=== PATIENT | female | born 1950 | race Caucasian/White ===

== ENCOUNTER → 2017-08-27 | Outpatient (CLI) | payer MEDICARE, OTHER ==
[2017-08-27 18:49] LABS: ANION GAP 10 MEQ/L (8-16); BLOOD UREA NITROGEN 16 MG/DL (7-18); CALCIUM LEVEL 8.8 MG/DL (8.8-10.2); CARBON DIOXIDE LEVEL 26 MEQ/L (21-32); CHLORIDE LEVEL 108 MEQ/L (98-107); GLOMERULAR FILTRATION RATE > 60.0 (>45); GLUCOSE, FASTING 112 MG/DL (70-100); POTASSIUM SERUM 4.9 MEQ/L (3.5-5.1); SODIUM LEVEL 144 MEQ/L (136-145)
== END ==
LOC: M SMT 11:05
DX: M81.0 Age-related osteoporosis without current pathological fracture (principal)
CPT/HCPCS: 80048

== ENCOUNTER → 2017-09-07 | Outpatient (CLI) | payer MEDICARE, OTHER ==
[2017-09-07 14:03] LABS: ANION GAP 8 MEQ/L (8-16); BLOOD UREA NITROGEN 14 MG/DL (7-18); CALCIUM LEVEL 9.3 MG/DL (8.8-10.2); CARBON DIOXIDE LEVEL 26 MEQ/L (21-32); CHLORIDE LEVEL 109 MEQ/L (98-107); CREATININE FOR GFR 0.85 MG/DL (0.55-1.30); GLOMERULAR FILTRATION RATE > 60.0 (>45); GLUCOSE, FASTING 87 MG/DL (70-100); POTASSIUM SERUM 4.9 MEQ/L (3.5-5.1); SODIUM LEVEL 143 MEQ/L (136-145)
== END ==
LOC: M SMT 10:00
DX: M81.0 Age-related osteoporosis without current pathological fracture (principal); E55.9 Vitamin D deficiency, unspecified
CPT/HCPCS: 80048

== ENCOUNTER 2017-09-08 08:46 | Outpatient (CLI) | payer MEDICARE, OTHER ==
[2017-09-08] MEDS: ZOLEDRONIC ACID 5 MG in APPROPRIATE DILUENT 1 EA IV (09:07)
== END 2017-09-08 10:00 | disposition home or self-care (01) ==
LOC: M INFU 08:46
DX: M81.0 Age-related osteoporosis without current pathological fracture (principal); Z88.0 Allergy status to penicillin; Z88.8 Allergy status to other drugs, medicaments and biological substances; Z79.899 Other long term (current) drug therapy
CPT/HCPCS: J3489

== ENCOUNTER → 2018-09-17 | Outpatient (CLI) | payer MEDICARE, OTHER ==
[~2018-09-17] MED LIST: ACET-683 PO; ALAVTAB PO; FISH7.5C PO; LORA0.5T11 PO; LUTECAP3 PO; RANI1TAB6 PO; TUMS750C5 PO; VITA-176 PO; VITA100T77 PO; VITA50005 PO; [UNRECOGNIZED DRUG - OTHER]; [UNRECOGNIZED DRUG - OTHER] PO
[2018-09-17 10:52] LABS: BLOOD UREA NITROGEN 17 MG/DL (7-18); CALCIUM LEVEL 9.6 MG/DL (8.8-10.2); CARBON DIOXIDE LEVEL 29 MEQ/L (21-32); CHLORIDE LEVEL 107 MEQ/L (98-107); CREATININE FOR GFR 0.86 MG/DL (0.55-1.30); GLOMERULAR FILTRATION RATE > 60.0 (>45); GLUCOSE, FASTING 95 MG/DL (70-100); POTASSIUM SERUM 4.6 MEQ/L (3.5-5.1); SODIUM LEVEL 144 MEQ/L (136-145)
== END ==
LOC: M LAB 09:49
PROVIDERS: ATTEND Internal Medicine Endocrinology, Diabetes & Metabolism
DX: M81.0 Age-related osteoporosis without current pathological fracture (principal)

== ENCOUNTER 2018-09-24 14:11 | Outpatient (CLI) | payer MEDICARE, OTHER ==
[~2018-09-24] VITALS: Ht 157.5 cm; Wt 68.2 kg
[2018-09-24 14:15] VITALS: BP 132/62
[2018-09-24] MEDS ORDERED: ZOLEDRONIC ACID 5 MG in APPROPRIATE DILUENT 1 EA IV ONE (15:00)
[2018-09-24 15:40] VITALS: BP 154/70
== END 2018-09-24 15:40 | disposition home or self-care (01) ==
LOC: M INFU 14:11
PROVIDERS: ATTEND Internal Medicine Endocrinology, Diabetes & Metabolism
DX: M85.89 Other specified disorders of bone density and structure, multiple sites (principal)
CPT/HCPCS: 96365; J3489

== ENCOUNTER 2018-11-09 10:19 | Day surgery (SDC) | payer MEDICARE, OTHER ==
[~2018-11-09] VITALS: Ht 157.5 cm; Wt 66.2 kg
[~2018-11-09 10:19] MED LIST changes: +NS 1,000 ML IV ONE; +OCUV1CAP4 PO; +OMEP-221 PO; +RANI-356 PO; -RANI1TAB6 PO; +RECL5INJ2 IV; +THERSOL3 OP
--- NOTE | 2018-11-09 12:42 | ROOR ---
Patient Name: Demond Nava Procedure Date: 11/09/2018 12:31 PM Date of : 1950 Age: 67 Room: [facility] Gender: Female Note Status: Finalized Procedure: Upper GI endoscopy Indications: Heartburn Providers: Raad NEVES MD Referring MD: Ivis DODSON MD Requesting Provider: Medicines: Monitored Anesthesia Care Complications: No immediate complications. Procedure: Pre-Anesthesia Assessment: - The heart rate, respiratory rate, oxygen saturations, blood pressure, adequacy of pulmonary ventilation, and response to care were monitored throughout the procedure. The Endoscope was introduced through the mouth, and advanced to the second part of duodenum. The upper GI endoscopy was accomplished without difficulty. The patient tolerated the procedure well. Findings: Small Hiatal Hernia. The esophagus was normal. The stomach was normal. The examined duodenum was normal. Impression: - Small Hiatal Hernia. - Normal esophagus. - Normal stomach. - Normal examined duodenum. - No specimens collected. Recommendation: - Follow an antireflux regimen. - Continue present medications. - (the script was sent to your pharmacy on file) Raad Neves MD Raad NEVES MD 11/09/2018 12:42:04 PM Electronically signed by Raad NEVES MD Number of Addenda: 0 Note Initiated On: 11/09/2018 12:31 PM Estimated Blood Loss: Estimated blood loss: none.
--- NOTE | 2018-11-09 13:04 | ROOR ---
Patient Name: Demond Nava Procedure Date: 11/09/2018 12:31 PM Date of : 1950 Age: 67 Room: [facility] Gender: Female Note Status: Finalized Procedure: Colonoscopy Indications: Screening for colorectal malignant neoplasm Providers: Raad NEVES MD Referring MD: Ivis DODSON MD Requesting Provider: Medicines: Monitored Anesthesia Care Complications: No immediate complications. Procedure: Pre-Anesthesia Assessment: - The heart rate, respiratory rate, oxygen saturations, blood pressure, adequacy of pulmonary ventilation, and response to care were monitored throughout the procedure. The Colonoscope was introduced through the anus and advanced to the terminal ileum, with identification of the appendiceal orifice and IC valve. The colonoscopy was performed without difficulty. The patient tolerated the procedure well. The quality of the bowel preparation was good. Findings: The perianal and digital rectal examinations were normal. Three sessile polyps were found in the ascending colon and cecum. The polyps were 4 to 6 mm in size. These polyps were removed with a cold snare. Resection and retrieval were complete. Small Internal Hemorrhoids. The exam was otherwise without abnormality on direct and retroflexion views. Impression: - Three 4 to 6 mm polyps in the ascending colon and in the cecum, removed with a cold snare. Resected and retrieved. - Small Internal Hemorrhoids. - The examination was otherwise normal on direct and retroflexion views. Recommendation: - Repeat colonoscopy in 3 years for surveillance. Raad Neves MD Raad NEVES MD 11/09/2018 1:04:07 PM Electronically signed by Raad NEVES MD Number of Addenda: 0 Note Initiated On: 11/09/2018 12:31 PM Estimated Blood Loss: Estimated blood loss: none.
[2018-11-09 13:35] VITALS: BP 148/77
== END 2018-11-09 13:38 | disposition home or self-care (01) ==
LOC: M OPP 10:19
PROVIDERS: ATTEND Internal Medicine Gastroenterology
DX: Z12.11 Encounter for screening for malignant neoplasm of colon (principal); D12.2 Benign neoplasm of ascending colon; D12.0 Benign neoplasm of cecum; R12 Heartburn; Z79.899 Other long term (current) drug therapy; Z88.8 Allergy status to other drugs, medicaments and biological substances; Z88.5 Allergy status to narcotic agent; Z88.2 Allergy status to sulfonamides; Z88.0 Allergy status to penicillin; Z87.891 Personal history of nicotine dependence

== ENCOUNTER → 2018-12-09 | Outpatient (CLI) | payer MEDICARE, OTHER ==
[~2018-12-09] MED LIST changes: -NS 1,000 ML IV ONE; +VITA100T14 PO; +VITA1CAP25 PO
[2018-12-09 12:15] LABS: BLOOD UREA NITROGEN 20 MG/DL (7-18); CALCIUM LEVEL 9.3 MG/DL (8.8-10.2); CARBON DIOXIDE LEVEL 30 MEQ/L (21-32); CHLORIDE LEVEL 107 MEQ/L (98-107); CREATININE FOR GFR 0.76 MG/DL (0.55-1.30); GLOMERULAR FILTRATION RATE > 60.0 (>45); GLUCOSE, FASTING 94 MG/DL (70-100); POTASSIUM SERUM 4.8 MEQ/L (3.5-5.1); SODIUM LEVEL 141 MEQ/L (136-145)
== END ==
LOC: M LAB 11:04
PROVIDERS: ATTEND Internal Medicine Endocrinology, Diabetes & Metabolism
DX: M81.0 Age-related osteoporosis without current pathological fracture (principal)

== ENCOUNTER → 2019-07-11 | Outpatient (REF) | payer MEDICARE, OTHER ==
[~2019-07-11] MED LIST changes: -LORA0.5T11 PO; +LORA0.5T5 PO; -RANI-356 PO; +RANI-397 PO
[2019-07-14 00:08] LABS: Lyme Disease IgG/IgM Antibodie <0.91 ISR (0.00-0.90); Lyme Disease IgM Ab Quantitati <0.80 index (0.00-0.79)
== END ==
LOC: M LAB REF 17:01
PROVIDERS: ATTEND Internal Medicine
DX: M25.50 Pain in unspecified joint (principal)

== ENCOUNTER → 2019-07-12 | Outpatient (CLI) | payer MEDICARE, OTHER ==
--- NOTE | 2019-07-12 11:26 | REPPI ---
BILATERAL HAND SERIES: Four views of each hand performed. No acute fracture or dislocation is seen. There is moderate narrowing with subchondral sclerosis between the scaphoid and trapezium on the right. There is mild narrowing at the joint between the trapezium and base of 1st metacarpal. There is mild narrowing of the 1st metacarpophalangeal joint. Mild diffuse narrowing of the 3rd through 5th proximal interphalangeal joints. There moderate narrowing of the 2nd through 5th distal interphalangeal joints with mild scattered spurring along these joints. On the left, there is moderate narrowing and mild subchondral sclerosis between the scaphoid and trapezium as well as between the trapezium and base of 1st metacarpal. There is mild narrowing and subchondral sclerosis at the 1st metacarpophalangeal and interphalangeal joints. There is mild diffuse narrowing of the 2nd through 5th proximal interphalangeal joints. There is moderate diffuse narrowing of the 2nd through 5th distal interphalangeal joints, with mild spurring at the base of the 2nd distal phalanx. IMPRESSION: Bilateral arthritic changes as above. Electronically Signed by Han Bach MD 07/12/2019 11:56 A
== END ==
LOC: M PLAIMG 10:33
PROVIDERS: ATTEND Internal Medicine
DX: M19.041 Primary osteoarthritis, right hand (principal); M19.042 Primary osteoarthritis, left hand; M79.641 Pain in right hand; M79.642 Pain in left hand

== ENCOUNTER 2019-08-08 17:53 | Emergency (ER) | payer MEDICARE, OTHER ==
[~2019-08-08] VITALS: Ht 160 cm; Wt 70.1 kg
[2019-08-08 17:54] VITALS: BP 143/99
[2019-08-08] MEDS ORDERED: MELO7.5T35 (18:00)
[2019-08-08] MEDS ORDERED: FLUORESCEIN OPHTH 1 MG STRIP OS ONE (18:30)
[2019-08-08] MEDS ORDERED: POLYSOL OP (18:44)
== END 2019-08-08 19:05 | disposition home or self-care (01) ==
LOC: M ED 17:53
DX: H11.32 Conjunctival hemorrhage, left eye (principal); S05.02XA Injury of conjunctiva and corneal abrasion without foreign body, left eye, initial encounter; X58.XXXA Exposure to other specified factors, initial encounter; Y92.099 Unspecified place in other non-institutional residence as the place of occurrence of the external cause; Y93.89 Activity, other specified; Y99.9 Unspecified external cause status; Z79.899 Other long term (current) drug therapy; Z88.0 Allergy status to penicillin; Z88.2 Allergy status to sulfonamides; Z88.5 Allergy status to narcotic agent

== ENCOUNTER → 2019-08-16 | Outpatient (CLI) | payer MEDICARE, OTHER ==
[~2019-08-16] MED LIST changes: +MELO7.5T35; +POLYSOL OP
--- NOTE | 2019-08-16 14:25 | REPVR ---
PROCEDURE INFORMATION: Exam: MR Lumbar Spine Without Contrast. Exam date and time: 08/16/2019 1:49 PM Age: 68 years old Clinical indication: Low back pain; Patient HX: Lbp; Additional info: Disc degeneration, R/O hnp/stenosis TECHNIQUE: Imaging protocol: Multiplanar magnetic resonance images of the lumbar spine without intravenous contrast. COMPARISON: CR SPINE LS COMPLETE 07/19/2019 10:55 AM FINDINGS: Vertebrae: 2 mm of degenerative retrolisthesis of L2 on L3 and L3 on L4. 2 mm of grade 1 degenerative anterolisthesis of L4 on L5. No acute fracture seen. Spinal cord: The conus medullaris ends normally. There is disc desiccation throughout. Disc height loss and spondylosis is mild at L2-L3, in particular there is prevertebral spondylosis. Slight posterior disc height loss with endplate osteophytic ridging at L4-L5. L1-L2: Mild facet arthropathy. No stenoses. L2-L3: Trace retrolisthesis. Mild diffuse disc bulge. Moderate facet arthropathy and ligamentum flavum buckling with facet joint effusions. The central spinal canal remains patent. No significant foraminal stenoses. L3-L4: Trace retrolisthesis. Mild diffuse disc bulge. Moderate facet arthropathy and ligamentum flavum buckling with facet joint effusions. The central spinal canal remains patent. Mild right neural foraminal stenosis. No significant left neural foraminal narrowing. L4-L5: Anterolisthesis with pseudobulging of the intervertebral disc. There is marked facet arthropathy and ligamentum flavum buckling with facet joint effusions. Central spinal canal stenosis is mild to moderate. The lateral recesses are narrowed near the L5 nerve roots. Mild bilateral neural foraminal stenoses, the exiting right L4 nerve root may contact foraminal bulging disc, the exiting left L4 nerve root may contact far lateral bulging disc. L5-S1: [id number] facet arthropathy with small facet joint effusions. Mild diffuse disc bulge. No stenoses. Soft tissues: Nonspecific edema in the back subcutaneous fat, potentially dependent/positional. IMPRESSION: 1. Grade 1 degenerative anterolisthesis of L4 on L5. 2. [id number] central spinal canal stenosis at L4-L5. Lateral recess stenoses may be cause of L5 distribution radiculopathy. Electronically signed by: Aditi Nelson On 08/16/2019 14:24:47 PM
== END ==
LOC: M RAD 12:22
PROVIDERS: ATTEND Orthopaedic Surgery
DX: M51.36 Other intervertebral disc degeneration, lumbar region (principal)

== ENCOUNTER → 2019-09-20 | Outpatient (CLI) | payer MEDICARE, OTHER ==
[~2019-09-20] MED LIST changes: +ALLE180T33 PO; +BUSP10TA PO; +CURC1POW2 MC; +OMEP-218 PO; +SERT-141 PO; +VOLT1GEL15 TOP
[2019-09-20 11:51] LABS: COLLAGEN EPINEPHRINE > 300 SECONDS (74-162)
[2019-09-20 12:28] LABS: COLLAGEN ADP 73 SECONDS (56-103)
[2019-09-20 12:58] LABS: PLATELET COUNT, AUTOMATED 207 10^3/uL (150-450)
[2019-09-20 13:02] LABS: INR 1.01
[2019-09-20 13:03] LABS: PARTIAL THROMBOPLASTIN TIME 29.9 SECONDS (25.0-38.4)
== END ==
LOC: M PLALAB 10:34
PROVIDERS: ATTEND Physician Assistant
DX: M47.817 Spondylosis without myelopathy or radiculopathy, lumbosacral region (principal)

== ENCOUNTER → 2019-10-20 | Outpatient (CLI) | payer MEDICARE, OTHER ==
[2019-10-20 12:34] LABS: COLLAGEN EPINEPHRINE 88 SECONDS (74-162)
== END ==
LOC: M PLALAB 10:05
PROVIDERS: ATTEND Physical Medicine & Rehabilitation
DX: M47.817 Spondylosis without myelopathy or radiculopathy, lumbosacral region (principal)

== ENCOUNTER → 2019-10-26 | Outpatient (CLI) | payer MEDICARE, OTHER | LOC: M LABSMTC 10:32 | PROVIDERS: ATTEND Physical Medicine & Rehabilitation | DX: Z03.818 Encounter for observation for suspected exposure to other biological agents ruled out (principal); Z11.59 Encounter for screening for other viral diseases | CPT/HCPCS: C9803; U0003 ==

== ENCOUNTER → 2019-11-11 | Outpatient (CLI) | payer MEDICARE, OTHER | LOC: M PLALAB 10:55 | PROVIDERS: ATTEND Internal Medicine Endocrinology, Diabetes & Metabolism | DX: M81.0 Age-related osteoporosis without current pathological fracture (principal) ==

== ENCOUNTER → 2020-01-01 | Outpatient (CLI) | payer MEDICARE, OTHER | LOC: M LABSMTC 09:53 | PROVIDERS: ATTEND Physical Medicine & Rehabilitation | DX: Z20.828 Contact with and (suspected) exposure to other viral communicable diseases (principal) ==

== ENCOUNTER → 2020-10-16 | Outpatient (CLI) | payer MEDICARE, OTHER ==
[2020-10-16 16:42] LABS: BLOOD UREA NITROGEN 21 MG/DL (7-18); CALCIUM LEVEL 9.8 MG/DL (8.8-10.2); CARBON DIOXIDE LEVEL 27 MEQ/L (21-32); CHLORIDE LEVEL 109 MEQ/L (98-107); CREATININE FOR GFR 0.78 MG/DL (0.55-1.30); GLOMERULAR FILTRATION RATE > 60.0 (>39); GLUCOSE, FASTING 83 MG/DL (70-100); SODIUM LEVEL 140 MEQ/L (136-145)
[2020-10-16 16:49] LABS: TOTAL 25(OH) VITAMIN D 59.3 NG/ML (30.0-100.0)
== END ==
LOC: M WUC 11:44
PROVIDERS: ATTEND Internal Medicine Endocrinology, Diabetes & Metabolism
DX: M81.0 Age-related osteoporosis without current pathological fracture (principal); E55.9 Vitamin D deficiency, unspecified

== ENCOUNTER 2020-10-23 15:09 | Outpatient (CLI) | payer MEDICARE, OTHER ==
[~2020-10-23] VITALS: Ht 160 cm; Wt 70.9 kg
[~2020-10-23 15:09] MED LIST changes: +ZOLEDRONIC ACID 5 MG in IV 1 EA IV ONE
[2020-10-23 15:10] VITALS: BP 168/90
[2020-10-23] MEDS ORDERED: CYMB1CAP5 PO (15:32)
[2020-10-23 16:08] VITALS: BP 160/72
== END 2020-10-23 16:10 | disposition home or self-care (01) ==
LOC: M INFU 15:09
PROVIDERS: ATTEND Internal Medicine Endocrinology, Diabetes & Metabolism
DX: M81.0 Age-related osteoporosis without current pathological fracture (principal); Z88.0 Allergy status to penicillin; Z88.2 Allergy status to sulfonamides; Z88.6 Allergy status to analgesic agent
CPT/HCPCS: 96365; J3489

== ENCOUNTER → 2020-12-08 | Outpatient (CLI) | payer MEDICARE, OTHER ==
[~2020-12-08] MED LIST changes: +CYMB1CAP5 PO; +DULO1CAP4 PO; -ZOLEDRONIC ACID 5 MG in IV 1 EA IV ONE
[2020-12-08 12:55] LABS: BLOOD UREA NITROGEN 18 MG/DL (7-18); CALCIUM LEVEL 9.5 MG/DL (8.8-10.2); CARBON DIOXIDE LEVEL 26 MEQ/L (21-32); CHLORIDE LEVEL 109 MEQ/L (98-107); CREATININE FOR GFR 0.79 MG/DL (0.55-1.30); GLOMERULAR FILTRATION RATE > 60.0 (>39); GLUCOSE, FASTING 98 MG/DL (70-100); POTASSIUM SERUM 5.1 MEQ/L (3.5-5.1); SODIUM LEVEL 141 MEQ/L (136-145)
== END ==
LOC: M LAB 11:35
PROVIDERS: ATTEND Internal Medicine Endocrinology, Diabetes & Metabolism
DX: M81.0 Age-related osteoporosis without current pathological fracture (principal)

== ENCOUNTER → 2021-07-04 | Outpatient (CLI) | payer MEDICARE, OTHER ==
[~2021-07-04] MED LIST changes: +OMEP-173 PO; -OMEP-218 PO; -OMEP-221 PO; +OMEP40CA5 PO
== END ==
LOC: M WUC 14:32
PROVIDERS: ATTEND Internal Medicine
DX: M54.40 Lumbago with sciatica, unspecified side (principal); M43.16 Spondylolisthesis, lumbar region; M51.36 Other intervertebral disc degeneration, lumbar region

== ENCOUNTER → 2021-08-27 | Outpatient (CLI) | payer MEDICARE, OTHER | LOC: M PLAIMG 10:44 | PROVIDERS: ATTEND Orthopaedic Surgery | DX: M51.26 Other intervertebral disc displacement, lumbar region (principal); M47.816 Spondylosis without myelopathy or radiculopathy, lumbar region ==

== ENCOUNTER → 2021-09-18 | Outpatient (CLI) | payer MEDICARE, OTHER | LOC: M WUC 10:21 | PROVIDERS: ATTEND Registered Nurse | DX: R05.9 Cough, unspecified (principal) ==

== ENCOUNTER → 2021-12-02 | Outpatient (CLI) | payer MEDICARE, OTHER ==
[~2021-12-02] MED LIST changes: +D3 H10002 PO; +ERGO500029 PO; +FISH10005 PO; -FISH7.5C PO; +RAMI1CAP26 PO
== END ==
LOC: M LABSMTC 09:39
PROVIDERS: ATTEND Anesthesiology
DX: Z01.812 Encounter for preprocedural laboratory examination (principal); Z20.822 Contact with and (suspected) exposure to COVID-19

== ENCOUNTER 2021-12-05 09:07 | Day surgery (SDC) | payer MEDICARE, OTHER ==
[~2021-12-05] VITALS: Ht 157.5 cm; Wt 69.8 kg
[~2021-12-05 09:07] MED LIST changes: +NS 1,000 ML IV ONE
[2021-12-05] MEDS ORDERED: LABETALOL 100MG/20ML VIAL As Ordered ONE (10:25)
[2021-12-05] MEDS ORDERED: propofoL 200 MG/20 ML VIAL As Ordered ONE ×2 (10:25→10:26)
[2021-12-05] MEDS ORDERED: LIDOCAINE 2% 100MG/5ML SDV (FOR ANES.) As Ordered ONE (10:25)
[2021-12-05 11:00] VITALS: BP 185/87
== END 2021-12-05 11:17 | disposition home or self-care (01) ==
LOC: M OPP 09:07
PROVIDERS: ATTEND Internal Medicine Gastroenterology
DX: Z12.11 Encounter for screening for malignant neoplasm of colon (principal); Z86.010 Personal history of colon polyps; K63.5 Polyp of colon; K64.8 Other hemorrhoids; Z79.51 Long term (current) use of inhaled steroids; Z79.899 Other long term (current) drug therapy; Z88.0 Allergy status to penicillin; Z88.2 Allergy status to sulfonamides; Z88.4 Allergy status to anesthetic agent; Z88.5 Allergy status to narcotic agent; Z85.3 Personal history of malignant neoplasm of breast; G47.33 Obstructive sleep apnea (adult) (pediatric); K21.9 Gastro-esophageal reflux disease without esophagitis; Z92.3 Personal history of irradiation; Z87.891 Personal history of nicotine dependence

== ENCOUNTER → 2022-08-16 | Outpatient (CLI) | payer MEDICARE, OTHER ==
[~2022-08-16] MED LIST changes: -NS 1,000 ML IV ONE
== END ==
LOC: M RAD 15:09
PROVIDERS: ATTEND Orthopaedic Surgery
DX: M51.26 Other intervertebral disc displacement, lumbar region (principal); M47.816 Spondylosis without myelopathy or radiculopathy, lumbar region

== ENCOUNTER → 2022-08-22 | Outpatient (CLI) | payer MEDICARE, OTHER | LOC: M SLEEP 20:00 | PROVIDERS: ATTEND Nurse Practitioner Family | DX: G47.33 Obstructive sleep apnea (adult) (pediatric) (principal) ==

== ENCOUNTER → 2023-09-07 | Outpatient (CLI) | payer MEDICARE, OTHER ==
[~2023-09-07] MED LIST changes: +RAMI10CA64 PO; -RAMI1CAP26 PO
== END ==
LOC: M RAD 14:41
PROVIDERS: ATTEND Orthopaedic Surgery
DX: M51.36 Other intervertebral disc degeneration, lumbar region (principal); M48.061 Spinal stenosis, lumbar region without neurogenic claudication; M43.16 Spondylolisthesis, lumbar region; M54.50 Low back pain, unspecified; R10.2 Pelvic and perineal pain

== ENCOUNTER → 2023-09-08 | Outpatient (REF) | payer MEDICARE, OTHER ==
[2023-09-08 12:15] LABS: BLOOD UREA NITROGEN 17 MG/DL (9-23); CARBON DIOXIDE LEVEL 28 MMOL/L (20-31); CHLORIDE LEVEL 109 MMOL/L (98-107); CREATININE FOR GFR 0.75 MG/DL (0.55-1.30); GLOMERULAR FILTRATION RATE > 60.0 (>39); GLUCOSE, FASTING 76 MG/DL (74-106); POTASSIUM SERUM 4.1 MMOL/L (3.5-5.1); SODIUM LEVEL 141 MMOL/L (136-145)
== END ==
LOC: M LABWUC 11:19
PROVIDERS: ATTEND Internal Medicine Endocrinology, Diabetes & Metabolism
DX: M81.0 Age-related osteoporosis without current pathological fracture (principal)

== ENCOUNTER → 2023-09-29 | Outpatient (REF) | payer MEDICARE, OTHER ==
[2023-09-29 12:56] LABS: AMORPHOUS SEDIMENT MODERATE (NEGATIVE); APPEARANCE, URINE TURBID (CLEAR); BACTERIA, URINE AUTO NEGATIVE (NEGATIVE); BILIRUBIN, URINE AUTO NEGATIVE (NEGATIVE); BLOOD, URINE BLOOD NEGATIVE (NEGATIVE); COLOR, URINE YELLOW (YELLOW); GLUCOSE, URINE (UA) AUTO NEGATIVE (NEGATIVE); KETONE, URINE AUTO NEGATIVE (NEGATIVE); LEUKOCYTE ESTERASE, URINE AUTO NEGATIVE (NEGATIVE); NITRITE, URINE AUTO NEGATIVE (NEGATIVE); PROTEIN, URINE AUTO NEGATIVE (NEGATIVE); RBC, URINE AUTO 0 /HPF (0-3); SPECIFIC GRAVITY URINE AUTO 1.027 (1.002-1.035); SQUAMOUS EPITHELIAL CELL UR AU 0 /HPF (0-6); UROBILINOGEN, URINE AUTO 0.2 mg/dL (0.0-2.0); WBC, URINE AUTO 0 /HPF (0-3)
== END ==
LOC: M LAB REF 12:26
PROVIDERS: ATTEND Internal Medicine
DX: Z01.818 Encounter for other preprocedural examination (principal); Z79.899 Other long term (current) drug therapy

== ENCOUNTER → 2024-07-14 | Outpatient (CLI) | payer MEDICARE, OTHER | LOC: M WHC 10:19 | PROVIDERS: ATTEND Internal Medicine Endocrinology, Diabetes & Metabolism | DX: M81.0 Age-related osteoporosis without current pathological fracture (principal) ==